=== PATIENT | male | born 1950 | race Caucasian/White ===

== ENCOUNTER 2018-01-13 13:47 | Emergency (ER) | payer OTHER ==
[~2018-01-13] VITALS: Ht 182.9 cm; Wt 104.3 kg
--- NOTE | ~2018-01-13 | CATHLAB ---
[facility] [place] [address] INVASIVE PROCEDURE REPORT Name: CURT WILSON Room #: [facility] [id number] Admission: 01/13/18 Attend Phys: Discharge: 01/13/18 Date of : 48 Date of Service: 01/13/181810 Report #: [id number] THIS REPORT FOR: //name// CC: Shola Cat FAM unknown Theodore Ptael DATE OF SERVICE: 01/13/2018 Following the patient's coronary angiogram and LAD stenting procedure, he was moved from the clinical lab specialist table to the ICU bed. Shortly thereafter, he witnessed asystole. ACLS was instituted with multiple rounds of epinephrine and prolonged CPR. Aggressive levels of blood were suctioned from his endotracheal tube. He was seen in emergent consultation by Dr. Houston Qiu. His exam was notable for hyperresonance over the left lung. Dr. Qiu placed a small caliber chest tube without of either air or blood. After 35 minutes of CPR and absence of return of spontaneous rhythm, he was pronounced . Family was updated throughout the resuscitative efforts. Thirty six minutes of critical care time from 14:14 p.m. to 14:47 p.m. By: 10 31 Abdullahi Domínguez MD, FACC /nt
--- NOTE | ~2018-01-13 | EKG ---
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
--- NOTE | ~2018-01-13 | EKG ---
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
--- NOTE | ~2018-01-13 | HC ---
[facility] [place] [address] CONSULTATION Name: CURT WILSON Room #: 170-6 ADM IN M.R.#: [id number] Admission: 01/13/18 Attend Phys: Shola Cat MD Discharge: Date of : 48 Report #: [id number] THIS REPORT FOR: //name// CC: Shola WILSON unknown DATE OF SERVICE: 01/13/2018 REASON FOR CONSULTATION: Cardiac arrest. HISTORY OF PRESENT ILLNESS: The patient is a 67-year-old gentleman with history of remote myocardial infarction with stenting. He has history of hypertension and dyslipidemia. He was eating lunch today and slumped back in his chair. He was unresponsive for an unspecified period of time. Paramedics were summoned. When they arrived, CPR was started. The initial rhythm was ventricular fibrillation for which he received multiple shocks, total of 7 times. ACLS was instituted and he received at least 5 rounds of epinephrine. He was intubated upon arrival. Presenting EKG demonstrated anterolateral injury pattern. I was called to see him. His history comes from his family and as he is intubated and comatose. Apparently, he had a midsternal chest tightness just before his period of unconsciousness. There have been no heart failure symptoms including orthopnea, paroxysmal nocturnal dyspnea or lower extremity edema. No history of palpitations, near syncope or syncope. ALLERGIES: No known drug allergies. MEDICATIONS: At home include rosuvastatin 40 mg daily, atenolol 25 mg daily, Zetia 10 mg daily. PAST MEDICAL HISTORY: Medical records include hypertension, dyslipidemia and coronary artery disease. He has had a mid LAD stenting and proximal right coronary stenting remotely. SOCIAL HISTORY: He has never been a smoker. He is . FAMILY HISTORY: Not obtainable. REVIEW OF SYSTEMS: Not obtainable. PHYSICAL EXAMINATION: GENERAL: Reveals a comatose gentleman who is intubated and ventilated. VITAL SIGNS: Blood pressure is 180/90, heart rate of 70 and regular, saturations are 100%. HEENT: Large amounts of blood are seen in the endotracheal tube. There are neither xanthelasma, subcutaneous xanthomata, oral mucosal or digital cyanosis or kyphoscoliosis present. [facility] [address] [place] [address] CONSULTATION Name: CURT WILSON Room #: 170-6 ADM IN .R.#: [id number] Admission: 01/13/18 Attend Phys: Shola Cat MD Discharge: Date of : 48 Report #: [id number] CHEST: Reveals equal breath sounds. There are coarse rhonchi and end-expiratory wheezes. CARDIAC: Reveals a distant regular rate and rhythm with normal S1, S2. ABDOMEN: Soft and nontender. EXTREMITIES: Mottled. There is no cyanosis or clubbing. Radial pulses are 2+. NEUROLOGIC: He is comatose. LABORATORY DATA: Sodium is 142, potassium 4.6, creatinine 1.7. Troponin is pending. INR of 1.1. White count 5.0, hemoglobin 16, hematocrit 52, platelet count 89,000. Chest x-ray shows bilateral opacities. Endotracheal tube is noted. IMPRESSION: 1. Status post out of hospital ventricular fibrillation arrest. 2. Acute anterolateral myocardial infarction. 3. Acute systolic heart failure. 4. Pulmonary hemorrhage. 5. Hypertension. 6. Dyslipidemia. RECOMMENDATIONS: Urgent coronary angiography. I have outlined the angiographic procedure to the patient's family. I have outlined potential risks as well as the risks associated with a percutaneous intervention. By: 1608 [id number] Abdullahi Domínguez MD, [facility] /nt
--- NOTE | ~2018-01-13 | CATHLAB ---
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 A PINNACLE 6FR Sheath #[id number] sheath was inserted into the RFA^. Coronary angiography was performed using coronary diagnostic catheters. The right coronary system was accessed and visualized with a JR4 catheter. The left coronary system was accessed and visualized with a LAUNCHER 6FR EBU 3.5 #[id number] catheter. The left ventricle was accessed and visualized with a PIGTAIL catheter. Left ventricular/Aortic Valve gradient assessed via catheter pullback. Left ventriculogram was performed in 30 degree projection. The patient tolerated the procedure well and there were no complications associated with the procedure. There was no hematoma. Intraoperative Conscious Sedation Sedation start time: 14.57 Case end Time: 15.48 Fluoro Time: 9.50 minutes Dose: DAP 44372.76 cGycm2 1566 mGy Contrast Type and Amount: Visipaque 215 ml Coronary Angiography [facility] [address] [place] [address] INVASIVE PROCEDURE REPORT Name: CURT WILSON ABDULLAHI Room #: [facility]P [facility] [id number] Admission: 01/13/18 Attend Phys: Discharge: 01/13/18 Date of : 48 Date of Service: 01/14/18 1653 Report #: [id number] The patient's coronary anatomy is right dominant. Diagnostic Cath Left Main Normal left main LAD The LAD was occluded in its midportion within a previously placed stent Circumflex Moderate, nondominant circumflex with distally arising marginal branch. Mild scattered plaquing OM1 Mild scattered plaquing. Right Coronary The right coronary was large and dominant. The mid right coronary had been previously stented. 60% mid right coronary intrastent stenosis R PDA Large posterior descending branch, angiographically normal RPLV Large posterior lateral branch, angiographically normal Ramus Moderate sized ramus branch with a 50% ostial stenosis Left Ventriculography The left ventricular ejection fraction is estimated to be 50-55%. Left ventricular wall motion abnormalities are not presentpresent. There is 1+ mitral insufficiency. Mild anterior wall hypokinesis Hemodynamics The pulmonary artery pressure is 43/24 mmHg with a mean of 29 mmHg. The mean pulmonary capillary wedge pressure is 21 mmHg. The aortic pressure is 123/87 mmHg with a mean of 99 mmHg. The left ventricular pressure is 131/17 mmHg with a mean of mmHg. The left ventricular end diastolic pressure is 35 mmHg. There was no gradient across the aortic valve upon pullback. Pullback from the left ventricle to the aorta revealed no gradient across the aortic valve. PCI Technique Lesion Anticoagulation was achieved with Heparin. Percutaneous coronary intervention was performed on the mid left anterior descending artery segment. The lesion stenosis prior to intervention was 100% with ARTI 0 flow. A LAUNCHER 6FR EBU 3.5 #[id number] Guide Catheter was used to engage the LCA ostium. A LUGE Interventional Guidewire was used to cross the lesion. BALLOON DILATION A Balloon catheter Euphora RX 2.5 x 12 #[id number] was inserted and inflated up to 10.00atm for 18seconds. Additional Inflation: 16.00atm for 29seconds. Moderately severe cocopah LAD stenosis just proximal to [facility] [address] [place] [address] INVASIVE PROCEDURE REPORT Name: CURT WILSON Room #: DEP [facility] Alexandre#: [id number] Admission: 01/13/18 Attend Phys: Discharge: 01/13/18 Date of : 48 Date of Service: 01/14/18 1653 Report #: [id number] the mid LAD stent. STENT DEPLOYMENT A bare metal stent INTEGRITY RX 2.5 X 14 #[id number] was inserted and inflated up to 16.00atm for 25seconds. Repeat angiography revealed the following post-stent deployment results: 0% residual stenosis. Mild, mid LAD stent distal stenosis treated with non-complaint balloon.. POST STENT DEPLOYMENT BALLOON DILATION A Balloon catheter EuphSweeten NC RX 2.75 x 12 #[id number] was inserted and inflated up to 22.00atm for 27seconds. Repeat angiography revealed the following post-dilatation results: 0% residual stenosis with ARTI III flow maintained. Additional Inflation: 20.00atm for 23seconds. Final angiography reveals 0 % stenosis with ARTI 3 flow. Conclusion 1. Mild left ventricular dysfunction with anterior wall hypokinesis 2. Mildly elevated right heart pressures 3. Normal left main 4. Occlusion of mid LAD stent, successfully ballooned, restented with 2.5 x 14mm Integrity stent reestablishing ARTI III flow 5. Mild plaquing on non-dominant circumflex 6. Dominant RCA with 60% intrastent mid RCA stenosis Recommendations Aggressive Medical Therapy <ELECTRONICALLY SIGNED> By: Abdullahi Domínguez MD, [facility] 01/14/181652 52 52 Abdullahi Domínguez MD, FAC /INF
[~2018-01-13 13:47] MED LIST: ADULT LOW DOSE81 MG PO; ATENOLOL 25MG T25 MG PG; NORCO 5-325 TA1 EACH PO; SILVADENE20 GM TP; VYTORIN 10-401 EACH PO
[2018-01-13 14:16] LABS: HEMATOCRIT 52.6 % (42.0-52.0); HEMOGLOBIN 16.8 gm/dL (14.0-18.0); MCH 32.1 pg (26.0-34.0); MCHC 31.9 g/dL (28.0-37.0); MCV 100.5 fL (80.0-100.0); RBC 5.23 mil/uL (4.50-6.00); RDW 15.8 % (10.5-14.5)
[2018-01-13 14:22] LABS: POC CA IONIZED 4.6 mg/dL (4.5-5.3); POC CREATININE 1.7 mg/dL (0.6-1.3); POC HEMOGLOBIN 16.7 g/dL (14.0-18.0); POC POTASSIUM 4.6 mmol/L (3.5-5.1)
[2018-01-13 14:30] VITALS: BP 185/96
[2018-01-13 14:31] LABS: APTT 41.8 Seconds (24.5-32.8); INR 1.1; PROTIME 11.5 Seconds (9.3-11.4)
[2018-01-13 14:36] LABS: ABSOLUTE NEUTROPHILS 0.5 thou/uL (1.4-8.2); ATYPICAL LYMPHS 12 %; PLATELET COUNT 89 thou/uL (150-400); PLATELET ESTIMATE SLIGHTLY DECREASED
[2018-01-13 16:23] LABS: BE(vivo) -20.6 mmol/L (-2 to +3); HCO3 15.1 mmol/L (22.0-26.0); PCO2 97.6 mmHg (35.0-45.0); PO2 47.4 mmHg (80.0-100.0); pH 6.807 (7.360-7.450); sO2 48.2 % (92.0-98.0)
== END 2018-01-13 14:30 | disposition still patient (30) ==
LOC: ER 13:47 → EROBS 14:53 → ER 14:53
PROVIDERS: Emergency Medicine; Hospitalist
DX: I46.9 Cardiac arrest, cause unspecified (principal); Z95.811 Presence of heart assist device; I25.2 Old myocardial infarction; Z85.46 Personal history of malignant neoplasm of prostate